=== PATIENT | female | born 1980 | race Caucasian/White ===

== ENCOUNTER 2021-01-28 07:40 | Emergency (ER) | payer OTHER ==
[~2021-01-28] VITALS: Ht 175.3 cm; Wt 117.9 kg
[2021-01-28 08:18] LABS: BASOPHIL 0.3 % (0-2); EOSINOPHIL 0.5 % (0-5); HCT 44.6 % (37.0-47.0); HGB 15.4 g/dl (12.5-16.0); LYMPHOCYTE 10.2 % (15-48); MCH 30.3 pg (25.0-31.0); MCHC 34.5 g/dL (32.0-36.0); MCV 87.8 fL (78.0-100.0); MONOCYTE 7.9 % (0-12); NEUTROPHIL 80.6 % (41-80); NRBC 0; PLT 223 K/uL (150-400); RBC 5.08 M/uL (4.20-5.40); RDW 11.8 % (11.5-14.0); WBC 11.7 K/uL (4.0-10.5)
[2021-01-28] MEDS ORDERED: ONDANSETRON ODT4 MG PO (08:20)
[2021-01-28] MEDS ORDERED: PHENERGAN25 M1 PO (08:20)
[2021-01-28 08:40] LABS: BUN/CREAT RATIO (CALC) 17.2 RATIO; CREATININE 0.93 mg/dL (0.51-0.95); POTASSIUM 3.4 mmol/L (3.5-5.1)
[2021-01-28 09:34] LABS: BILIRUBIN 1+ mg/dL (NEGATIVE); BLOOD 2+ Ery/uL (NEGATIVE); CLARITY HAZY (CLEAR); COLOR YELLOW (YELLOW); GLUCOSE (U) NORMAL (NORMAL); LEUKOCYTES 1+ Leu/uL (NEGATIVE); NITRITE NEGATIVE (NEGATIVE); PROTEIN TRACE (LOW) mg/dL (NEGATIVE); SPECIFIC GRAVITY >=1.030 (1.001-1.030); UROBILINOGEN 0.2 mg/dL (0.2-1.0)
[2021-01-28 09:40] LABS: BACTERIA 3+
[2021-01-28] MEDS ORDERED: PERCOCET 5-3251 EACH PO (10:30)
== END 2021-01-28 11:10 | disposition home or self-care (01) ==
LOC: FER 07:40
PROVIDERS: Internal Medicine
DX: N20.0 Calculus of kidney (principal); I10 Essential (primary) hypertension; Z79.899 Other long term (current) drug therapy
CPT/HCPCS: 36415; 80048; 81001; 85025; 96372; J0696; J1170; J2550; J7030; J7120